=== PATIENT | male | born 1965 | race Hispanic/Latino ===

== ENCOUNTER 2018-05-28 12:08 | Observation (INO) | payer OTHER ==
[2018-05-28] VITALS (23 sets, daily range): BP systolic 123–142; BP diastolic 63–83
[2018-05-28] MEDS ORDERED: MORPHINE SULFATE 4 MG/1ML SYG ONE ×2 (12:42→13:03)
[2018-05-28] MEDS ORDERED: SODIUM CHLORIDE 0.9% 1000ML 1,000 ML IV ONE ×2 (12:42→14:26)
[2018-05-28] MEDS ORDERED: TETANUS/DIPHTHERIA TOXOID [ADULT] 0.5 ML VIAL IM ONE (12:43)
[2018-05-28] MEDS ORDERED: ONDANSETRON HCL 4 MG/2 ML VIAL ONE (13:03)
[2018-05-28 13:32] LABS: BASOPHILS % (AUTO) 0.7 % (0.0-5.0); EOSINOPHILS % (AUTO) 1.1 % (0.0-8.0); HEMATOCRIT 42.3 % (42-54); LYMPHOCYTES % (AUTO) 17.4 % (21.0-51.0); MEAN CORPUSCULAR HEMOGLOBIN 29.7 pg (27.0-33.0); MEAN CORPUSCULAR HGB CONC 34.6 g/dL (32.0-36.0); MEAN CORPUSCULAR VOLUME 85.8 fL (79-99); MONOCYTES % (AUTO) 5.3 % (3.0-13.0); NEUTROPHILS % (AUTO) 75.5 % (40.0-77.0); PLATELET COUNT (AUTO) 156 K/uL (130-400); RED BLOOD CELL COUNT(AUTO) 4.93 MIL/uL (4.50-6.20); RED CELL DISTRIBUTION WIDTH 13.8 % (11.0-15.5); WHITE BLOOD COUNT (AUTO) 10.2 K/uL (4.8-10.8)
[2018-05-28] MEDS ORDERED: CEFAZOLIN SODIUM 1 GM VIAL ONE ×2 (13:35→14:54)
[2018-05-28] MEDS ORDERED: SODIUM CHLORIDE 0.9% 100 ML IV ONE (13:36)
[2018-05-28 13:45] LABS: POTASSIUM 3.9 mmol/L (3.5-5.1)
[2018-05-28] MEDS ORDERED: FENTANYL CITRATE PF 50 MCG/1 ML 2ML VIAL ONE ×2 (14:38→14:45)
[2018-05-28] MEDS ORDERED: MIDAZOLAM HCL 1 MG/ML 2ML VIAL ONE (14:45)
[2018-05-28] MEDS ORDERED: PROPOFOL 10 MG/ML 20ML VIAL IV ONE ×2 (14:46→15:02)
[2018-05-28] MEDS ORDERED: SUCCINYLCHOLINE CHLORIDE 20 MG/ML 10 ML VIAL ONE (14:46)
[2018-05-28] MEDS ORDERED: ROCURONIUM 10MG/1ML SYR 10 MG/ML ML ONE ×2 (14:47→15:20)
[2018-05-28] MEDS ORDERED: GLYCOPYRROLATE 1 MG/5 ML SYRINGE ONE (15:18)
[2018-05-28] MEDS ORDERED: NEOSTIGMINE 5MG/5ML SYR IV ONE (16:26)
[2018-05-28] MEDS ORDERED: KETOROLAC TROMETHAMINE 30MG/ML ONE (16:52)
[2018-05-28] MEDS ORDERED: PROMETHAZINE HCL 25 MG/ML 1ML AMPULE IM PRN (17:00)
[2018-05-28] MEDS ORDERED: DIPHENHYDRAMINE HCL 25 MG CAPSULE PO PRN (17:00)
[2018-05-28] MEDS ORDERED: LIDOCAINE HCL-MPF 1% 2ML VIAL IVP PRN (17:00)
[2018-05-28] MEDS ORDERED: KETOROLAC TROMETHAMINE 15MG/ML IV PRN (17:00)
[2018-05-28] MEDS ORDERED: DiphenhydrAMINE HCL 50 MG/ML VIAL IVP PRN (17:00)
[2018-05-28] MEDS: ACETAMINOPHEN EXTRA STRENGTH 500 MG TABLET PO SCH (17:00)
[2018-05-28] MEDS ORDERED: POTASSIUM CHLORIDE 10% ELIXIR 20 MEQ/15 ML UDCUP PO PRN (17:00)
[2018-05-28] MEDS ORDERED: HYDROCODONE/ACETAMINOPHEN 5/325 MG TAB PO PRN (17:00)
[2018-05-28] MEDS: SODIUM CHLORIDE 0.9% 1000ML 1,000 ML IV SCH (17:00)
[2018-05-28] MEDS ORDERED: TEMAZEPAM 15 MG CAPSULE PO PRN (17:00)
[2018-05-28] MEDS ORDERED: POTASSIUM CHLORIDE 20MEQ/100ML 100 ML IV PRN (17:00)
[2018-05-28] MEDS ORDERED: MEPERIDINE-PF 25 MG/ML SYG ONE (17:39)
[2018-05-28] MEDS ORDERED: LOSA25TA16 PO (19:47)
[2018-05-28] MEDS ORDERED: CREON12 PO (19:47)
[2018-05-28] MEDS ORDERED: SIMV10TA6 PO (19:47)
[2018-05-28] MEDS ORDERED: CANA1TAB4 PO (19:47)
[2018-05-28] MEDS ORDERED: AMLO10TA6 PO (19:47)
[2018-05-28] MEDS ORDERED: INSU100I15 SQ (19:47)
[2018-05-28] MEDS ORDERED: INSU100V12 SQ (19:47)
[2018-05-28] MEDS: FAMOTIDINE 20MG TAB 20 MG TAB PO SCH (20:20)
[2018-05-28] MEDS: CEFAZOLIN SODIUM 1 GM VIAL IVP SCH (20:20)
[2018-05-28] MEDS: INSULIN HUMULIN R 100 UNIT/ML 3ML SQ SCH (20:47)
[2018-05-28] MEDS: HYDROCODONE/ACETAMINOPHEN 5/325 MG TAB PO PRN (20:49)
[2018-05-29 00:12] VITALS: BP 138/79
[2018-05-29] MEDS: ACETAMINOPHEN EXTRA STRENGTH 500 MG TABLET PO SCH ×3 (00:40→16:41)
[2018-05-29] MEDS: HYDROCODONE/ACETAMINOPHEN 5/325 MG TAB PO PRN ×5 (02:04→21:58)
[2018-05-29] MEDS: SODIUM CHLORIDE 0.9% 1000ML 1,000 ML IV SCH ×2 (02:49→13:00)
[2018-05-29] MEDS: CEFAZOLIN SODIUM 1 GM VIAL IVP SCH ×3 (02:49→19:20)
[2018-05-29 04:16] VITALS: BP 153/78
[2018-05-29 04:32] LABS: HEMATOCRIT 36.8 % (42-54); MEAN CORPUSCULAR HEMOGLOBIN 29.3 pg (27.0-33.0); MEAN CORPUSCULAR HGB CONC 33.9 g/dL (32.0-36.0); MEAN CORPUSCULAR VOLUME 86.4 fL (79-99); PLATELET COUNT (AUTO) 123 K/uL (130-400); RED BLOOD CELL COUNT(AUTO) 4.26 MIL/uL (4.50-6.20); RED CELL DISTRIBUTION WIDTH 13.8 % (11.0-15.5); WHITE BLOOD COUNT (AUTO) 9.8 K/uL (4.8-10.8)
[2018-05-29 04:40] LABS: CREATININE 0.9 mg/dL (0.5-1.5); POTASSIUM 3.7 mmol/L (3.5-5.1)
[2018-05-29] MEDS: KETOROLAC TROMETHAMINE 30MG/ML IV PRN ×3 (05:44→16:34)
[2018-05-29] MEDS: INSULIN HUMULIN R 100 UNIT/ML 3ML SQ SCH ×4 (06:20→20:43)
[2018-05-29 08:04] VITALS: BP 128/80
[2018-05-29] MEDS: CANAGLIFLOZIN PO SCH (09:00)
[2018-05-29] MEDS: METFORMIN HCL PO SCH (09:00)
[2018-05-29 10:55] VITALS: BP 142/80
[2018-05-29] MEDS: TAMSULOSIN HCL 0.4 MG CAP.ER.24H PO SCH (11:23)
[2018-05-29] MEDS: AMLODIPINE BESYLATE 5 MG TAB PO SCH (11:23)
[2018-05-29] MEDS: FAMOTIDINE 20MG TAB 20 MG TAB PO SCH ×2 (11:23→19:19)
[2018-05-29] MEDS: LOSARTAN 50 MG TABLET PO SCH (11:23)
[2018-05-29] MEDS: CALCIUM CARBONATE 500 MG TABLET PO PRN ×2 (11:24→19:19)
[2018-05-29] MEDS: POLYETHYLENE GLYCOL 3350 17 GM POWD.PACK PO SCH (11:25)
[2018-05-29] MEDS: INSULIN LISPRO 100 UNIT/ML 3ML SQ SCH ×2 (11:54→16:42)
[2018-05-29 16:22] VITALS: BP 149/83
[2018-05-29] MEDS: PSYLLIUM SEED 1 EACH PACKET PO SCH (16:32)
[2018-05-29 20:16] VITALS: BP 135/72
[2018-05-29] MEDS ORDERED: SIMVASTATIN 10 MG TABLET PO SCH (21:00)
[2018-05-29] MEDS ORDERED: INSULIN GLARGINE 100 UNITS/ML 10 ML VIAL SQ SCH (21:00)
[2018-05-30 00:16] VITALS: BP 129/76
[2018-05-30] MEDS: KETOROLAC TROMETHAMINE 30MG/ML IV PRN ×3 (00:18→11:50)
[2018-05-30] MEDS: ACETAMINOPHEN EXTRA STRENGTH 500 MG TABLET PO SCH ×2 (00:19→09:24)
[2018-05-30] MEDS: HYDROCODONE/ACETAMINOPHEN 5/325 MG TAB PO PRN ×2 (02:17→09:23)
[2018-05-30] MEDS: CEFAZOLIN SODIUM 1 GM VIAL IVP SCH ×2 (03:10→11:42)
[2018-05-30 04:00] VITALS: BP 129/76
[2018-05-30 05:21] LABS: HEMATOCRIT 36.4 % (42-54); MEAN CORPUSCULAR HGB CONC 34.8 g/dL (32.0-36.0); MEAN CORPUSCULAR VOLUME 86.3 fL (79-99); PLATELET COUNT (AUTO) 138 K/uL (130-400); RED BLOOD CELL COUNT(AUTO) 4.22 MIL/uL (4.50-6.20); RED CELL DISTRIBUTION WIDTH 13.7 % (11.0-15.5); WHITE BLOOD COUNT (AUTO) 8.1 K/uL (4.8-10.8)
[2018-05-30 05:26] LABS: POTASSIUM 3.1 mmol/L (3.5-5.1)
[2018-05-30] MEDS: POTASSIUM CHLORIDE 20 MEQ ERTAB PO PRN ×2 (05:35→09:24)
[2018-05-30] MEDS: INSULIN LISPRO 100 UNIT/ML 3ML SQ SCH ×2 (05:46→12:05)
[2018-05-30] MEDS: INSULIN HUMULIN R 100 UNIT/ML 3ML SQ SCH ×2 (05:51→12:04)
[2018-05-30 07:30] VITALS: BP 142/75
[2018-05-30] MEDS: AMYLASE PO SCH ×2 (09:00→09:27)
[2018-05-30] MEDS: CANAGLIFLOZIN PO SCH (09:00)
[2018-05-30] MEDS: PROTEASE PO SCH ×2 (09:00→09:27)
[2018-05-30] MEDS: METFORMIN HCL PO SCH (09:00)
[2018-05-30] MEDS: LIPASE PO SCH ×2 (09:00→09:27)
[2018-05-30] MEDS: LOSARTAN 50 MG TABLET PO SCH (09:23)
[2018-05-30] MEDS: FAMOTIDINE 20MG TAB 20 MG TAB PO SCH (09:24)
[2018-05-30] MEDS: TAMSULOSIN HCL 0.4 MG CAP.ER.24H PO SCH (09:25)
[2018-05-30] MEDS: AMLODIPINE BESYLATE 5 MG TAB PO SCH (09:25)
[2018-05-30] MEDS: POLYETHYLENE GLYCOL 3350 17 GM POWD.PACK PO SCH (09:25)
[2018-05-30 11:00] VITALS: BP 144/80
[2018-05-30] MEDS: PSYLLIUM SEED 1 EACH PACKET PO SCH (12:05)
[2018-05-30] MEDS ORDERED: MORPHINE SULFATE 4 MG/1ML SYG ONE (15:24)
[2018-05-30] MEDS ORDERED: BISACODYL 5 MG TABLET.DR PO PRN (17:00)
[2018-05-30] MEDS ORDERED: CEPH500B PO (17:04)
[2018-05-30] MEDS ORDERED: HYDR-309 PO (17:04)
[2018-05-31] MEDS ORDERED: BISACODYL 10 MG SUPP.RECT RC PRN (17:00)
== END 2018-05-30 18:20 | disposition home health service (06) ==
LOC: EDH 12:08 → EDHIP 13:45 → 4AH 17:56
PROVIDERS: ADMIT Orthopaedic Surgery; ATTEND Orthopaedic Surgery
DX: S52.501A Unspecified fracture of the lower end of right radius, initial encounter for closed fracture (principal); S52.601A Unspecified fracture of lower end of right ulna, initial encounter for closed fracture; W07.XXXA Fall from chair, initial encounter; Y93.89 Activity, other specified; Y92.89 Other specified places as the place of occurrence of the external cause; Y99.8 Other external cause status; Z23 Encounter for immunization; Z79.899 Other long term (current) drug therapy
CPT/HCPCS: 20690; 25609; 25652; 36415 ×3; 73070; 73100; 76000; 80048 ×3; 82948 ×7; 85025; 85027 ×2; 90471; 90714; 96372 ×2; 96374; 96375; 96376 ×2; 99285; A4218 ×2; A4565; A4600; A4649; A4930 ×2; A6223; A6446; C1776 ×2; G0378 ×53; J0330; J0690 ×8; J1815 ×2; J1885 ×7; J2175; J2250; J2270 ×3; J2405; J2704 ×2; J2710; J3010 ×2; J3490; J7030 ×3

== ENCOUNTER → 2025-05-27 | Outpatient (CLI) | payer OTHER ==
[~2025-05-27] MED LIST: AMLO-258 PO; CANA1TAB4 PO; CEPH500B PO; CREON12 PO; HYDR-4457 PO; INSU100I15 SQ; INSU100V12 SQ; LOSA25TA41 PO; SIMV10TA97 PO
[2025-05-27 09:39] LABS: IMMATURE GRANULOCYTE ABSOLUTE 0.02 K/uL (0-1); NUCLEATED RED BLOOD CELLS 0.0 % (0.0-0.19); PLATELET COUNT (AUTO) 209 K/uL (130-400); RED BLOOD CELL COUNT(AUTO) 5.07 MIL/uL (4.50-6.20); RED CELL DISTRIBUTION WIDTH 12.4 % (11.0-15.5); WHITE BLOOD COUNT (AUTO) 7.5 K/uL (4.8-10.8)
== END | disposition home or self-care (01) ==
LOC: LAB 09:10
PROVIDERS: ATTEND Internal Medicine
DX: D69.6 Thrombocytopenia, unspecified (principal)
CPT/HCPCS: 36415; 85025